=== PATIENT | female | born 1935 | race Caucasian/White ===

== ENCOUNTER 2016-09-25 10:30 | Outpatient (RCR) | payer MEDICARE ==
[~2016-09-25 10:30] MED LIST: ALPR0.5T7 PO; APIX2.5T PO; ASP81TEC PO; CFTR1PB IV; CHLO25TA2 PO; CLIN150C17 PO; CLIN300C11 PO; CLOP75TA PO; ENAL10TA PO; ENAL20TA PO; ENAL5TAB PO; FISH1CAP15 PO; HCT25T PO; HYDR-3812 PO; HYDR25TA4 PO; LACT1TAB9 PO; METO-274 PO; METO100T5 PO; MULT-35 PO; OMEG10005 PO; POVI3780 TOP; PRAV80TA2 PO; RISP0.253 PO; SENN-20 PO; TRAM50TA2 PO; TRIA1TAB3 PO; UBID10CA8 PO; VANC500V IV; [UNRECOGNIZED DRUG - CODE]
[2016-09-25] MEDS ORDERED: ACID1TAB5 PO (13:12)
[2016-09-25] MEDS ORDERED: RISP0.253 PO (13:12)
[2016-09-25] MEDS ORDERED: DOCU-143 PO (13:35)
[2016-10-01] MEDS ORDERED: AMOX500C2 PO (10:02)
[2016-10-01] MEDS ORDERED: ACID1TAB PO (10:02)
[2016-10-01] MEDS ORDERED: ZINC28PA TOP (10:02)
[2016-10-01] MEDS ORDERED: [UNRECOGNIZED DRUG - SUPPLY] TOP (10:02)
== END 2016-09-29 | disposition home or self-care (01) ==
LOC: WOUNDCARE 10:30
PROVIDERS: ATTEND Surgery
DX: L97.212 Non-pressure chronic ulcer of right calf with fat layer exposed (principal); L97.422 Non-pressure chronic ulcer of left heel and midfoot with fat layer exposed; L97.412 Non-pressure chronic ulcer of right heel and midfoot with fat layer exposed; I70.232 Atherosclerosis of native arteries of right leg with ulceration of calf; I70.244 Atherosclerosis of native arteries of left leg with ulceration of heel and midfoot; L89.150 Pressure ulcer of sacral region, unstageable; L03.115 Cellulitis of right lower limb; L97.312 Non-pressure chronic ulcer of right ankle with fat layer exposed; L97.322 Non-pressure chronic ulcer of left ankle with fat layer exposed; I70.233 Atherosclerosis of native arteries of right leg with ulceration of ankle; I70.243 Atherosclerosis of native arteries of left leg with ulceration of ankle; R54 Age-related physical debility
CPT/HCPCS: 11042; 11043; 11045; 11046; 87070; 87075; 87205; 97597; 99214

== ENCOUNTER 2016-09-25 11:29 | Inpatient (IN) | payer MEDICARE ==
[~2016-09-25] VITALS: Ht 162.6 cm; Wt 39.7 kg
[2016-09-25 12:00] VITALS: BP 121/72
[2016-09-25] MEDS ORDERED: VANCOMYCIN INJECTION 0.1 MG in NS (IVPB) 250 ML IV SCH (12:45)
[2016-09-25] MEDS ORDERED: CATHETER FLUSH 10 ML SYR IV PRN (13:00)
[2016-09-25] MEDS ORDERED: VANCOMYCIN 750 MG/NS 250 ML IVPB IV NR ×2 (13:00)
[2016-09-25] MEDS ORDERED: ACID1TAB5 PO (13:12)
[2016-09-25] MEDS ORDERED: RISP0.253 PO (13:12)
[2016-09-25] MEDS ORDERED: DOCU-143 PO (13:35)
[2016-09-25] MEDS ORDERED: fentaNYL INJECTION 100 MCG/2 ML AMP IVP NR (14:00)
[2016-09-25] MEDS ORDERED: PANTOPRAZOLE 40 MG (PROTONIX) TAB PO NR (14:00)
[2016-09-25] MEDS ORDERED: DOCUSATE SODIUM 100 MG (COLACE) CAP PO PRN (14:00)
[2016-09-25] MEDS ORDERED: fentaNYL INJECTION 100 MCG/2 ML AMP IVP PRN (14:00)
--- NOTE | 2016-09-25 14:03 | History & Physicial ---
History of Present Illness History of Present Illness Reason for visit/HPI PT IS A 80 Y/O FEMALE WHO IS KNOWN TO ME FROM CLINIC AND PREVIOUS HOSPITALIZATIONS. THE PATIENT WAS SEEN IN WOUND CARE TODAY - DR. CUNNINGHAM CALLED ME TO ASK FOR THE PATIENT TO BE ADMITTED TO THE HOSPITAL FOR WOUND CARE, IV ANTIBIOTICS, AND NUTRITION SUPPLEMENTATION. THE PATIENT REPORTS TO ME THAT SHE HAS QUITE A BIT OF PAIN ON HER LOWER LEG DUE TO THE WOUND ON HER ANKLES - BUT SPECIFICALLY THE RIGHT INNER ANKLE IS QUITE PAINFUL. SHE STATES THAT SHE DOES NOT EAT WELL AT HOME. WHEN I ASKED IF HER SON WAS CARING FOR HER - SHE STATED, "WELL....NOT WELL HE COULD I GUESS" AND WHEN I ASKED HER ABOUT IF SHE WAS EATING, AND WHO GOT THE FOOD AND IF HER MONEY WAS BEING SPENT ON FOOD FOR HER, SHE RESPONDED FOLLOWS: "MY SON GETS THE FOOD FOR US, THE MONEY IS SPENT A LITTLE ON FOOD, AND MORE ON CIGARETTES" Date of Admission Sep 25, 2016 at 11:37 I consulted on this patient on 09/25/16 13:55 Attending Physician Alysia Nathan MD Admitting Physician Alysia Nathan MD Consult MARY CUNNINGHAM MD Allergies and Home Medications Allergies Coded Allergies: NKANo Known Allergies (Verified Allergy, Unknown, 11/16/06) Home Medications Docusate Sodium 100 Mg Capsule 100 MG PO DAILY PRN PRN CONSTIPATION (Reported) Enalapril Maleate 20 Mg Tablet 20 MG PO DAILY (Reported) Hydrochlorothiazide 25 Mg Tablet 25 MG PO DAILY (Reported) L. Acidophilus/Bulgaricus 1 Each Tab.chew 1 TAB.CHEW PO TID (Reported) Metoprolol Succinate 100 Mg Tab.er.24h 100 MG PO DAILY (Reported) Risperidone 0.25 Mg Tablet 0.25 MG PO BID (Reported) Tramadol HCl 50 Mg Tablet 50 MG PO BID PRN PRN PAIN (Reported) Past Qdflvyg-Vmhjee-Cvrdcg Hx Patient Social History Marrital Status: Living Status: LIVES AT HOME WITH SON Employed/Student: retired Smoking Status: Current Everyday Smoker Type Used: Cigarettes 2nd Hand Smoke Exposure: Yes Physical Abuse Screen: No Sexual Abuse: No Recent Foreign Travel: No Contact w/other who traveled: No Recent Hopitalizations: Yes Recent Infectious Disease Expo: No Immunizations Up To Date Tetanus Booster (TDap): Unknown Date of Pneumonia Vaccine: May 18, 2014 Surgeries HX Surgeries: Yes (BILATERAL TOTAL HIP REPLACEMENTS) Surgeries: Breast, Joint Replacement, Orthopedic Respiratory Hx Respiratory Disorders: Yes Respiratory Disorders: COPD Cardiovascular Hx Cardiovascular Disorders: Yes Cardiac Disorders: Coronary Artery Disease, Heart Murmur, High Cholesterol, Hypertension, Peripheral Vascular, Valvular Heart Disease Neurological Hx Neurological Disorders: Yes Neurological Disorders: Dementia Reproductive System Hx Reproductive Disorders: No Sexually Transmitted Disease: No HIV/AIDS: No Female Reproductive Disorders: Denies [employer]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 Genitourinary Hx Genitourinary Disorders: No Gastrointestinal Hx Gastrointestinal Disorders: Yes Gastrointestinal Disorders: Chronic Constipation Musculoskeletal Hx Musculoskeletal Disorders: Yes ([place]--USES WALKER) Musculoskeletal Disorders: Arthritis, Fractures Endocrine Hx Endocrine Disorders: No HEENT HX ENT Disorders: No Loss of Vision: Denies Hearing Impairment: Hard of Hearing Cancer Hx Cancer: No Psychosocial Hx Psychiatric Problems: Yes Behavioral Health Disorders: Bipolar, Depression Integumentary HX Skin/Integumentary Disorder: No Blood Transfusions Hx Blood Disorders: Yes (ANEMIA) Adverse Reaction to a Blood Tr: No Reviewed Nursing Assessment Reviewed/Agree w Nursing PMH: Yes Family Medical History Significant Family History: Heart Disease, Cancer, Hypertension Family Hx: Cardiovascular disease 19 MOTHER (CVA) FH: mitral valve repair G8 SISTER FH: ovarian cancer KOFFI Myocardial infarction 19 FATHER Constitutional: No chills, No fever, malaise weakness EENTM: No hoarseness, No mouth pain, No throat pain Respiratory: No cough, No dyspnea on exertion Cardiovascular: no symptoms reportedNo chest pain, No palpitations Gastrointestinal: No abdominal pain, No constipation, No diarrhea Genitourinary: frequency Musculoskeletal: other (CONTRACTURES OF LOWER LEGS) Skin: other (OPEN WOUNDS ON LOWER LEGS/ANKLES, UPPER ARM) Psychiatric/Neurological: Denies Anxiety, Denies Depressed All Other Systems Reviewed Negative Unless Noted: Yes Physical Exam Vital Signs Vital Sign - Last 12Hours 09/25/16 12:00 Temp 95.6 Pulse 72 Resp 16 B/P 121/72 Pulse Ox 97 O2 Delivery Room Air Capillary Refill : General Appearance: No Apparent Distress Thin Eyes: Bilateral Eye EOMI, Bilateral Eye Normal Inspection, Bilateral Eye PERRL HEENT: PERRL/EOMI Pharynx Normal Neck: Full Range of Motion Supple Respiratory: Chest Non Tender Decreased Breath Sounds Cardiovascular: Regular Rate, Rhythm Systolic Murmur Gastrointestinal: Normal Bowel Sounds No Organomegaly No Pulsatile Mass Non Tender Soft Rectal: Deferred Back: Normal Inspection Extremity: Other (OPEN WOUNDS ON BILATERAL LOWER LEGS - WRAPPED, MEDIHONEY IN PLACE ON WOUNDS) Neurologic/Psychiatric: Alert Oriented x3 Normal Mood/Affect Lymphatic: No Adenopathy Assessment/Plan Assessment and Plan CELLULITIS OF WOUNDS ON LEGS 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 HYPERTENSION - RESTARTED METOPROLOL AND MONITOR BLOOD PRESSURE AND HEART RATE CLOSELY. COPD - CHRONIC - STABLE, MONITOR SYMPTOMS. BIPOLAR - RESTARTED RISPERDAL ANOREXIA - SUSPECT NEGLECT AT HOME, DISCUSSED WITH CHIEF MERCHANDISING OFFICER - THEY WILL PLACE HOT-LINE CALL FOR ADULT PROTECTIVE SERVICES. CONTINUE WITH SUPPORTIVE CARE AND START IN HIGH CALORIE, HIGH PROTEIN DIET LOW AIR LOSS BED TO BE ORDERED DUE TO PT'S DECREASED ABILITY TO MOVE, WILL ORDER PHYSICAL THERAPY TO START ON WEDNESDAY Admission Diagnosis CELLULITIS OF WOUNDS ON LEGS HX OF MRSA IN WOUNDS ON LOWER LEGS - COPD BIPOLAR MOOD DISORDER ANOREXIA HYPERTENSION Clinical Quality Measures DVT/VTE Risk/Contraindication: Contraindications-Mechi: Other *list below* Other: WOUNDS ON LOWER LEGS ALYSIA NATHAN MD Sep 25, 2016 14:03
[2016-09-25 14:17] LABS: BASOPHILS # (AUTO) 0.1 10^3/uL (0.0-0.1); BASOPHILS % (AUTO) 1 % (0-10); EOSINOPHILS # (AUTO) 0.3 10^3/uL (0.0-0.3); EOSINOPHILS % (AUTO) 3 % (0-10); LYMPHOCYTES # (AUTO) 1.6 X 10^3 (1.0-4.0); LYMPHOCYTES % (AUTO) 19 % (12-44); MEAN CORPUSCULAR HEMOGLOBIN 28 PG (25-34); MEAN CORPUSCULAR HGB CONC 33 G/DL (32-36); MEAN CORPUSCULAR VOLUME 83 FL (80-99); MEAN PLATELET VOLUME 7.9 FL (7.4-10.4); MONOCYTES # (AUTO) 0.4 X 10^3 (0.0-1.0); MONOCYTES % (AUTO) 5 % (0-12); NEUTROPHILS % (AUTO) 72 % (42-75); PLATELET COUNT 509 10^3/uL (130-400); RED BLOOD COUNT 4.67 10^6/uL (4.35-5.85); RED CELL DISTRIBUTION WIDTH 14.5 % (10.0-14.5); WHITE BLOOD COUNT 8.3 10^3/uL (4.3-11.0)
[2016-09-25 14:39] LABS: CARBON DIOXIDE 26 MMOL/L (21-32); CHLORIDE 95 MMOL/L (98-107); POTASSIUM 3.3 MMOL/L (3.6-5.0); SODIUM 134 MMOL/L (135-145)
[2016-09-25 14:40] LABS: ALANINE AMINOTRANSFERASE 22 U/L (0-55); ALBUMIN 3.5 G/DL (3.2-4.5); ANION GAP 13 MMOL/L (5-14); ASPARTATE AMINO TRANSFERASE 26 U/L (5-34); BILIRUBIN,TOTAL 0.4 MG/DL (0.1-1.0); BLOOD UREA NITROGEN 25 MG/DL (7-18); BUN/CREATININE RATIO 40; CALCIUM 8.8 MG/DL (8.5-10.1); CREATININE SERUM 0.63 MG/DL (0.60-1.30); GFR ESTIMATED > 60; GLUCOSE 87 MG/DL (70-105); TOTAL PROTEIN 7.1 G/DL (6.4-8.2)
[2016-09-25] MEDS ORDERED: PIPERACILLIN SODIUM/TAZOBACTAM 4.5 GM in NS (IVPB) 100 ML IV NR (15:00)
[2016-09-25] MEDS: ENOXAPARIN 40 MG/0.4 ML (LOVENOX) SYR SC SCH (15:26)
[2016-09-25] MEDS: CATHETER FLUSH 10 ML SYR IV SCH ×2 (15:27→21:24)
[2016-09-25 16:00] VITALS: BP 134/82
[2016-09-25] MEDS: D5 1/2 NS 1000 ML IV SOLUTION 1,000 ML IV SCH (16:47)
[2016-09-25] MEDS: LACTOBACILLUS Acidoph/Bulgar (LACTINEX/FLORANEX) TAB PO SCH (16:47)
--- NOTE | 2016-09-25 19:11 | Wound Care Progress Note ---
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 It was my opinion that the patient was not stable to be returned to the home environment. The accounts given of the cause of the traumatic injury to R calf have been inconsistent. Review of Systems General: No Chills Pulmonary: No Dyspnea Cardiovascular: No: Chest Pain Gastrointestinal: : Nausea Neurological: : Weakness Objective Exam Last Set of Vital Signs Vital Signs Date Time Temp Pulse Resp B/P Pulse Ox O2 Delivery O2 Flow Rate FiO2 09/25/16 16:00 96.9 69 20 134/82 97 Room Air Capillary Refill : General: Alert, No Acute Distress Lungs: Normal Air Movement Skin: Other (wounds of R calf, R medial ankle, L medial ankle, and sacrum which were documented and dressed earlier today in [facility].) Results Lab Laboratory Tests 09/25/16 14:10: Alanine Aminotransferase (ALT/SGPT) 22, Albumin 3.5, Alkaline Phosphatase 88, Anion Gap 13, Aspartate Amino Transf (AST/SGOT) 26, BUN/Creatinine Ratio 40, Basophils # (Auto) 0.1, Basophils (%) (Auto) 1, Blood Urea Nitrogen 25H, Calcium Level 8.8, Carbon Dioxide Level 26, Chloride Level 95L, Creatinine 0.63 , Eosinophils # (Auto) 0.3, Eosinophils (%) (Auto) 3, Estimat Glomerular Filtration Rate > 60, Glucose Level 87, Hematocrit 39, Hemoglobin 13.0, Lymphocytes # (Auto) 1.6, Lymphocytes (%) (Auto) 19, Mean Corpuscular Hemoglobin 28, Mean Corpuscular Hemoglobin Concent 33, Mean Corpuscular Volume 83, Mean Platelet Volume 7.9, Monocytes # (Auto) 0.4, Monocytes (%) (Auto) 5, Neutrophils # (Auto) 6.0, Neutrophils (%) (Auto) 72, Platelet Count 509H, Potassium Level 3.3L, Red Blood Count 4.67, Red Cell Distribution Width 14.5, Sodium Level 134L, Total Bilirubin 0.4, Total Protein 7.1, White Blood Count 8.3 Assessment/Plan Assessment/Plan Assessment/Plan 1. Cellulitis of R calf. 2. Infected, necrotic laceration of R calf. 3. Arterial insufficiency R leg, non-reconstructible. 4. Dementia. Plan: Manuka honey alginate dressings. IV Vancomycin, Zosyn per Pharm MARY TERRELL MD Sep 25, 2016 7:11 pm
[2016-09-25] MEDS ORDERED: FLU TRIvalent (5 YOA+) 2016-17 (AFLURIA) 0.5 ML IM ONE (19:45)
[2016-09-25 20:45] VITALS: BP 120/57
[2016-09-25] MEDS: NICOTINE 14 MG (NICODERM) PATCH TD SCH (21:24)
[2016-09-25] MEDS: risperiDONE 0.25 MG (RisperDAL) TAB PO SCH (21:24)
[2016-09-25] MEDS: ZINC OXIDE 16% OINT (BUTT PASTE) 113 GM TUBE TOP SCH (21:24)
[2016-09-25] MEDS: PIPERACILLIN SODIUM/TAZOBACTAM 4.5 GM in NS (IVPB) 100 ML IV SCH (22:10)
[2016-09-26] VITALS (7 sets, daily range): BP systolic 93–114; BP diastolic 54–78
[2016-09-26] MEDS: VANCOMYCIN 500 MG/NS 100 ML IVPB IV SCH ×4 (00:54→15:06)
[2016-09-26] MEDS: CATHETER FLUSH 10 ML SYR IV SCH ×3 (06:00→20:54)
[2016-09-26] MEDS: D5 1/2 NS 1000 ML IV SOLUTION 1,000 ML IV SCH ×2 (06:24→10:31)
[2016-09-26 06:33] LABS: BASOPHILS # (AUTO) 0.1 10^3/uL (0.0-0.1); BASOPHILS % (AUTO) 1 % (0-10); EOSINOPHILS # (AUTO) 0.5 10^3/uL (0.0-0.3); EOSINOPHILS % (AUTO) 7 % (0-10); LYMPHOCYTES # (AUTO) 0.8 X 10^3 (1.0-4.0); LYMPHOCYTES % (AUTO) 11 % (12-44); MEAN CORPUSCULAR HEMOGLOBIN 27 PG (25-34); MEAN CORPUSCULAR HGB CONC 33 G/DL (32-36); MEAN CORPUSCULAR VOLUME 83 FL (80-99); MEAN PLATELET VOLUME 7.9 FL (7.4-10.4); MONOCYTES # (AUTO) 0.5 X 10^3 (0.0-1.0); MONOCYTES % (AUTO) 6 % (0-12); NEUTROPHILS # (AUTO) 6.1 X 10^3 (1.8-7.8); NEUTROPHILS % (AUTO) 77 % (42-75); PLATELET COUNT 461 10^3/uL (130-400); RED BLOOD COUNT 4.01 10^6/uL (4.35-5.85); RED CELL DISTRIBUTION WIDTH 14.5 % (10.0-14.5); WHITE BLOOD COUNT 7.9 10^3/uL (4.3-11.0)
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
[2016-09-26 06:45] LABS: ALANINE AMINOTRANSFERASE 18 U/L (0-55); ALBUMIN 2.7 G/DL (3.2-4.5); ANION GAP 9 MMOL/L (5-14); ASPARTATE AMINO TRANSFERASE 20 U/L (5-34); BILIRUBIN,TOTAL 0.4 MG/DL (0.1-1.0); BLOOD UREA NITROGEN 19 MG/DL (7-18); BUN/CREATININE RATIO 29; CALCIUM 8.2 MG/DL (8.5-10.1); CARBON DIOXIDE 25 MMOL/L (21-32); CHLORIDE 100 MMOL/L (98-107); CREATININE SERUM 0.66 MG/DL (0.60-1.30); GFR ESTIMATED > 60; GLUCOSE 120 MG/DL (70-105); POTASSIUM 2.8 MMOL/L (3.6-5.0); SODIUM 134 MMOL/L (135-145); TOTAL PROTEIN 5.4 G/DL (6.4-8.2)
[2016-09-26] MEDS: PIPERACILLIN SODIUM/TAZOBACTAM 4.5 GM in NS (IVPB) 100 ML IV SCH ×3 (06:50→22:03)
[2016-09-26] MEDS: LACTOBACILLUS Acidoph/Bulgar (LACTINEX/FLORANEX) TAB PO SCH ×3 (06:50→15:11)
[2016-09-26] MEDS: PANTOPRAZOLE 40 MG (PROTONIX) TAB PO SCH (06:50)
[2016-09-26] MEDS: KCL 20 MEQ TAB (K-DUR) PO SCH (06:54)
[2016-09-26] MEDS ORDERED: NICOTINE 14 MG (NICODERM) PATCH TD SCH (09:00)
[2016-09-26] MEDS: risperiDONE 0.25 MG (RisperDAL) TAB PO SCH ×2 (10:31→20:53)
[2016-09-26] MEDS: meTOprolol SUCCINATE 100 MG (TOPROL XL) TAB PO SCH ×2 (10:31→10:45)
[2016-09-26] MEDS: NICOTINE PATCH REMOVAL TP SCH (10:31)
[2016-09-26] MEDS: NICOTINE 14 MG (NICODERM) PATCH TD SCH (10:31)
[2016-09-26] MEDS: ZINC OXIDE 16% OINT (BUTT PASTE) 113 GM TUBE TOP SCH ×3 (10:32→20:54)
[2016-09-26] MEDS: ENALAPRIL 10 MG (VASOTEC) TAB PO SCH ×2 (10:35→10:45)
[2016-09-26] MEDS ORDERED: FLU TRIvalent (5 YOA+) 2016-17 (AFLURIA) 0.5 ML IM ONE (10:37)
[2016-09-26] MEDS ORDERED: TROUGH ORDER-PHARMACY XX NR (12:00)
[2016-09-26] MEDS: ENOXAPARIN 40 MG/0.4 ML (LOVENOX) SYR SC SCH (15:06)
[2016-09-27] VITALS: BP 101/66
[2016-09-27] MEDS: VANCOMYCIN 500 MG/NS 100 ML IVPB IV SCH ×4 (02:20→12:10)
[2016-09-27] MEDS: D5 1/2 NS 1000 ML IV SOLUTION 1,000 ML IV SCH (03:00)
[2016-09-27 06:00] VITALS: BP 111/70
[2016-09-27] MEDS: LACTOBACILLUS Acidoph/Bulgar (LACTINEX/FLORANEX) TAB PO SCH ×3 (06:05→18:37)
[2016-09-27] MEDS: KCL 20 MEQ TAB (K-DUR) PO SCH (06:05)
[2016-09-27] MEDS: PANTOPRAZOLE 40 MG (PROTONIX) TAB PO SCH (06:05)
[2016-09-27] MEDS: CATHETER FLUSH 10 ML SYR IV SCH ×3 (06:06→21:59)
[2016-09-27] MEDS: PIPERACILLIN SODIUM/TAZOBACTAM 4.5 GM in NS (IVPB) 100 ML IV SCH ×3 (06:06→21:59)
[2016-09-27 08:00] VITALS: BP 138/78
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
[2016-09-27] MEDS: POTASSIUM CL 10MEQ/50ML IVPB 50 ML IV SCH ×4 (09:24→14:07)
[2016-09-27] MEDS: NICOTINE 14 MG (NICODERM) PATCH TD SCH (09:25)
[2016-09-27] MEDS: NS W/KCL 40 MEQ/L 1,000 ML IV SCH (09:25)
[2016-09-27] MEDS: NICOTINE PATCH REMOVAL TP SCH (09:25)
[2016-09-27] MEDS: risperiDONE 0.25 MG (RisperDAL) TAB PO SCH ×2 (09:25→21:59)
[2016-09-27] MEDS: ZINC OXIDE 16% OINT (BUTT PASTE) 113 GM TUBE TOP SCH ×3 (09:25→21:59)
[2016-09-27] MEDS: meTOprolol SUCCINATE 100 MG (TOPROL XL) TAB PO SCH (09:26)
[2016-09-27] MEDS: ENALAPRIL 10 MG (VASOTEC) TAB PO SCH (09:26)
[2016-09-27 12:00] VITALS: BP 126/75
[2016-09-27] MEDS: ENOXAPARIN 40 MG/0.4 ML (LOVENOX) SYR SC SCH (14:23)
[2016-09-27 14:45] LABS: BASOPHILS % (AUTO) 1 % (0-10); EOSINOPHILS # (AUTO) 0.4 10^3/uL (0.0-0.3); EOSINOPHILS % (AUTO) 6 % (0-10); LYMPHOCYTES % (AUTO) 16 % (12-44); MEAN CORPUSCULAR HEMOGLOBIN 28 PG (25-34); MEAN CORPUSCULAR HGB CONC 33 G/DL (32-36); MEAN CORPUSCULAR VOLUME 84 FL (80-99); MEAN PLATELET VOLUME 7.7 FL (7.4-10.4); MONOCYTES # (AUTO) 0.4 X 10^3 (0.0-1.0); MONOCYTES % (AUTO) 5 % (0-12); NEUTROPHILS # (AUTO) 4.7 X 10^3 (1.8-7.8); NEUTROPHILS % (AUTO) 72 % (42-75); PLATELET COUNT 486 10^3/uL (130-400); RED BLOOD COUNT 3.89 10^6/uL (4.35-5.85); RED CELL DISTRIBUTION WIDTH 14.5 % (10.0-14.5); WHITE BLOOD COUNT 6.5 10^3/uL (4.3-11.0)
[2016-09-27 15:07] LABS: ALANINE AMINOTRANSFERASE 17 U/L (0-55); ALBUMIN 2.7 G/DL (3.2-4.5); ANION GAP 9 MMOL/L (5-14); ASPARTATE AMINO TRANSFERASE 19 U/L (5-34); BILIRUBIN,TOTAL 0.3 MG/DL (0.1-1.0); BLOOD UREA NITROGEN 12 MG/DL (7-18); BUN/CREATININE RATIO 20; CALCIUM 7.9 MG/DL (8.5-10.1); CARBON DIOXIDE 22 MMOL/L (21-32); CHLORIDE 104 MMOL/L (98-107); GFR ESTIMATED > 60; GLUCOSE 98 MG/DL (70-105); POTASSIUM 4.6 MMOL/L (3.6-5.0); SODIUM 135 MMOL/L (135-145); TOTAL PROTEIN 5.5 G/DL (6.4-8.2)
[2016-09-27 16:50] VITALS: BP 114/58
[2016-09-27 20:00] VITALS: BP 124/63
[2016-09-28] VITALS (7 sets, daily range): BP systolic 115–133; BP diastolic 62–79
[2016-09-28] MEDS: NS W/KCL 40 MEQ/L 1,000 ML IV SCH ×2 (00:48→14:42)
[2016-09-28] MEDS: VANCOMYCIN 500 MG/NS 100 ML IVPB IV SCH ×4 (01:20→13:55)
[2016-09-28] MEDS: KCL 20 MEQ TAB (K-DUR) PO SCH (06:14)
[2016-09-28] MEDS: PIPERACILLIN SODIUM/TAZOBACTAM 4.5 GM in NS (IVPB) 100 ML IV SCH ×3 (06:14→21:26)
[2016-09-28] MEDS: LACTOBACILLUS Acidoph/Bulgar (LACTINEX/FLORANEX) TAB PO SCH ×3 (06:14→17:20)
[2016-09-28] MEDS: PANTOPRAZOLE 40 MG (PROTONIX) TAB PO SCH (06:14)
[2016-09-28] MEDS: CATHETER FLUSH 10 ML SYR IV SCH ×3 (06:14→21:26)
--- NOTE | 2016-09-28 09:17 | Progress Note (SOAP) ---
Subjective Subjective/Events-last exam PT REPORTS THAT SHE IS HAVING A GOOD APPETITE, SHE IS NOT NAUSEATED, SHE IS STILL HAVING PAIN IN HER LEGS AT THE WOUND SITES. Review of Systems General: Fatigue Pulmonary: No Dyspnea, No Cough Cardiovascular: : EdemaNo: Chest Pain Gastrointestinal: No: Abdominal Pain, Nausea Genitourinary: Frequency Neurological: : Weakness Objective Exam Vital Signs Date Time Temp Pulse Resp B/P Pulse Ox O2 Delivery O2 Flow Rate FiO2 09/28/16 08:00 97.2 99 18 128/79 95 Room Air 09/28/16 04:00 98.4 82 21 121/64 96 Room Air 09/28/16 00:00 98.9 78 17 115/62 95 Room Air 09/27/16 20:30 Room Air 09/27/16 20:00 98.3 80 22 124/63 94 Room Air 09/27/16 16:50 98.7 72 21 114/58 95 Room Air 09/27/16 12:00 97.3 71 21 126/75 97 Room Air I & O 09/28/16 07:00 Intake Total 1480 ml Output Total 600 ml Balance 880 ml Capillary Refill : General Appearance: No Apparent Distress Thin HEENT: PERRL/EOMI Pharynx Normal Neck: Full Range of Motion Supple Respiratory: Chest Non Tender Lungs Clear Normal Breath Sounds Cardiovascular: Regular Rate, Rhythm Gastrointestinal: normal bowel sounds non tender soft Extremity: No Pedal Edema Neurologic/Psychiatric: Alert Oriented x3 Normal Mood/Affect Skin: Other (SEE WOUND CARE NOTES FOR DETAILS) Lymphatic: No Adenopathy Results Lab Laboratory Tests 09/27/16 14:40: Alanine Aminotransferase (ALT/SGPT) 17, Albumin 2.7L, Alkaline Phosphatase 68, Anion Gap 9, Aspartate Amino Transf (AST/SGOT) 19, BUN/Creatinine Ratio 20, Basophils # (Auto) 0.0, Basophils (%) (Auto) 1, Blood Urea Nitrogen 12, Calcium Level 7.9L, Carbon Dioxide Level 22, Chloride Level 104, Creatinine 0.60, Eosinophils # (Auto) 0.4H, Eosinophils (%) (Auto) 6, Estimat Glomerular Filtration Rate > 60, Glucose Level 98, Hematocrit 33L, Hemoglobin 10.7L, Lymphocytes # (Auto) 1.0, Lymphocytes (%) (Auto) 16, Mean Corpuscular Hemoglobin 28, Mean Corpuscular Hemoglobin Concent 33, Mean Corpuscular Volume 84, Mean Platelet Volume 7.7, Monocytes # (Auto) 0.4, Monocytes (%) (Auto) 5, Neutrophils # (Auto) 4.7, Neutrophils (%) (Auto) 72, Platelet Count 486H, Potassium Level 4.6, Red Blood Count 3.89L, Red Cell Distribution Width 14.5, Sodium Level 135, Total Bilirubin 0.3, Total Protein 5.5L, White Blood Count 6.5 Assessment/Plan Assessment/Plan Assess & Plan/Chief Complaint CELLULITIS OF WOUNDS ON LEGS 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 HYPERTENSION - RESTARTED METOPROLOL AND MONITOR BLOOD PRESSURE AND HEART RATE CLOSELY. COPD - CHRONIC - STABLE, MONITOR SYMPTOMS. BIPOLAR - RESTARTED RISPERDAL ANOREXIA - SUSPECT NEGLECT AT HOME, DISCUSSED WITH COMMUNICATIONS ENGINEER - THEY WILL PLACED A HOT-LINE CALL FOR ADULT PROTECTIVE SERVICES. CONTINUE WITH SUPPORTIVE CARE AND STARTED ON A HIGH CALORIE, HIGH PROTEIN DIET DISCUSSED WITH COMMUNICATIONS ENGINEER, THEY ARE TALKING TO THE FAMILY ABOUT PLACEMENT OPTIONS - I HAVE RECOMMENDED [facility] IF THEY WILL ACCEPT HER FOR WOUND CARE AND IV ANTIBIOTICS VERSUS [facility] PLACEMENT Diagnosis/Problems: Clinical Quality Measures DVT/VTE Risk/Contraindication: Risk Factor Score Per Nursin RFS Level Per Nursing on Admit: 4+=Very High Contraindications-Mechi: Other *list below* Other: WOUNDS ON LOWER LEGS ALYSIA NORRIS MD Sep 28, 2016 09:17
[2016-09-28] MEDS: ENALAPRIL 10 MG (VASOTEC) TAB PO SCH (10:20)
[2016-09-28] MEDS: meTOprolol SUCCINATE 100 MG (TOPROL XL) TAB PO SCH (10:20)
[2016-09-28] MEDS: risperiDONE 0.25 MG (RisperDAL) TAB PO SCH ×2 (10:20→21:26)
[2016-09-28] MEDS: NICOTINE 14 MG (NICODERM) PATCH TD SCH (10:20)
[2016-09-28] MEDS: ZINC OXIDE 16% OINT (BUTT PASTE) 113 GM TUBE TOP SCH ×3 (10:21→21:26)
[2016-09-28] MEDS: NICOTINE PATCH REMOVAL TP SCH (10:21)
--- NOTE | 2016-09-28 12:03 | Physical Therapy Evaluation ---
PT Evaluation-General Medical Diagnosis Admission Date Sep 25, 2016 at 11:37 Medical Diagnosis: right LE cellulitis Onset Date: Sep 25, 2016 Therapy Diagnosis Therapy Diagnosis: generalized weakness and debility Height/Weight Height (Feet): 5 Height (Inches): 4.00 Weight (Pounds): 87 Weight (Ounces): 8.0 Precautions Precautions/Isolations: Contact Isolation Weight Bear Status Location Restriction: LE Bilateral Referral Physician: Venita Reason for Referral: Evaluation/Treatment Medical History Pertinent Medical History: Arthritis, CAD, COPD, Dementia, HTN, PVD, Smoking Additional Medical History bilateral THR; bipolar Current History admitted from wound care Reviewed History: Yes Social History Home: Single Level Current Living Status: Other Family Entry Into Home: Ramp Prior/Core FIM Prior Level of Function Functional [place] Measure 0=Not Assessed/NA 4=Minimal Assistance 1=Total Assistance 5=Supervision or Setup 2=Maximal Assistance 6=Modified [place] 3=Moderate Assistance 7=Complete [place] Bed Mobility: 5 Transfers (B,C,W/C) (FIM): 5 Gait: 0 Wheelchair Mobility: 5 patient does not ambulate, uses her w/c for mobility PT Evaluation-Current Subjective Patient is in bed and unaware of incontinent BM with patient has her hands in it. Pain Numeric Pain Scale: 5-Moderate Pain Location: Right, Left Location Body Site: Calf Comment: FLACC Objective Patient Orientation: Confused Problem Solving: Poor Attachments: Mora Catheter, IV ROM/Strength ROM Lower Extremities diminished bilateral ankle dorsiflexion with mild plantarflexion contracture; bilateral knee flexion/extension WFL Strenght Lower Extremities right knee flexion/extension 2-/5; hip flexion 2/5 left knee flexion/extension 2-/5; hip flexion 2/5 Integumentary/Posture Integumentary refer to nursing notes Bowel Incontinence: Yes Bladder Incontinence: Mora Cath Posture severely kyphotic Neuromuscular (Tone, Coordination, Reflexes) severely diminished coordination and tone from disuse and inability to care for self Sensory Vision: Functional Hearing: Impaired Sensation Right Lower Extremit: Intact Sensation Left Lower Extremity: Intact Transfers Functional [place] Measure 0=Not Assessed/NA 4=Minimal Assistance 1=Total Assistance 5=Supervision or Setup 2=Maximal Assistance 6=Modified [place] 3=Moderate Assistance 7=Complete [place] Transfers (B, C, W/C) (FIM): 1 Scootin Rollin Supine to/from Sit: 1 Sit to/from Stand: 1 bed t/f WC(FIM only if WC use): 1 dependent assist with all mobility and to cleanse BM and change clothing; patient is retropulsive in sit and stand with inability to self correct. Gait Mode of Locomotion: Wheelchair Anticipated Mode of Locomotion: Wheelchair Balance Sitting Static: Poor Sitting Dynamic: Poor Standing Static: Poor Standing Dynamic: Poor Assessment/Needs 80 y.o. extremely debilitated female, will benefit from skilled PT to address functional strength and mobility to improve current LOF. From a PT standpoint, patient will require LTCF to ensure prolonged improvement in mobility and strength. Rehab Potential: Guarded Post Rehab Potential-Barriers: inability to care for self PT System Validation Engineer Goals Half-Way Goals PT System Validation Engineer Goals Time Frame: Oct 09, 2016 Transfers (B,C,W/C) (FIM): 4 Gait (FIM): 1 Gait distance (FIM): 1=up to 49 ft Distance: 5' Gait Level of Assist: 2 Gait Assistive Device: FWW Wheelchair (FIM): 1 Wheelchair distance (FIM): 1=up to 49 ft Distance: 10' Wheelchair Level of Assist: 3 PT Plan Problem List Problem List: Activity Tolerance, Functional Strength, Safety, Balance, Gait, Transfer, Bed Mobility, ROM Treatment/Plan Treatment Plan: Continue Plan of Care Treatment Plan: Bed Mobility, Education, Functional Activity Lianna, Functional Strength, Gait, Safety, Therapeutic Exercise, Transfers Treatment Duration: Oct 09, 2016 # of days/week 5 Visits Per Week: 5 Safety Risks/Education Patient Education: Safety Issues Teaching Recipient: Patient Teaching Methods: Discussion Response to Teaching: Reinforcement Needed Discharge Recommendations Therapy D/C Recommendations: Half-Way Placement Time/GCodes Time In: 1055 Time Out: 1115 Total Billed Treatment Time: 20 Total [facility] CAM CORONADO PT Sep 28, 2016 12:03
[2016-09-28 14:14] LABS: BASOPHILS # (AUTO) 0.1 10^3/uL (0.0-0.1); BASOPHILS % (AUTO) 1 % (0-10); EOSINOPHILS # (AUTO) 0.3 10^3/uL (0.0-0.3); EOSINOPHILS % (AUTO) 4 % (0-10); LYMPHOCYTES # (AUTO) 1.6 X 10^3 (1.0-4.0); LYMPHOCYTES % (AUTO) 22 % (12-44); MEAN CORPUSCULAR HEMOGLOBIN 27 PG (25-34); MEAN CORPUSCULAR HGB CONC 32 G/DL (32-36); MEAN CORPUSCULAR VOLUME 86 FL (80-99); MEAN PLATELET VOLUME 7.8 FL (7.4-10.4); MONOCYTES # (AUTO) 0.5 X 10^3 (0.0-1.0); MONOCYTES % (AUTO) 7 % (0-12); NEUTROPHILS % (AUTO) 67 % (42-75); PLATELET COUNT 472 10^3/uL (130-400); RED CELL DISTRIBUTION WIDTH 14.5 % (10.0-14.5); WHITE BLOOD COUNT 7.5 10^3/uL (4.3-11.0)
[2016-09-28 14:32] LABS: ALANINE AMINOTRANSFERASE 17 U/L (0-55); ALBUMIN 2.5 G/DL (3.2-4.5); ANION GAP 5 MMOL/L (5-14); ASPARTATE AMINO TRANSFERASE 19 U/L (5-34); BILIRUBIN,TOTAL 0.2 MG/DL (0.1-1.0); BLOOD UREA NITROGEN 16 MG/DL (7-18); BUN/CREATININE RATIO 27; CALCIUM 7.8 MG/DL (8.5-10.1); CARBON DIOXIDE 23 MMOL/L (21-32); CHLORIDE 106 MMOL/L (98-107); GFR ESTIMATED > 60; GLUCOSE 88 MG/DL (70-105); POTASSIUM 4.3 MMOL/L (3.6-5.0); SODIUM 134 MMOL/L (135-145); TOTAL PROTEIN 5.2 G/DL (6.4-8.2)
--- NOTE | 2016-09-28 14:36 | Occupational Therapy Eval ---
OT Evaluation-General/PLF Medical Diagnosis Admission Date Sep 25, 2016 at 11:37 Medical Diagnosis: right LE cellulitis Onset Date: Sep 25, 2016 Therapy Diagnosis Therapy Diagnosis: Weakness, Decreased ADL skills Height/Weight Height (Feet): 5 Height (Inches): 4.00 Weight (Pounds): 87 Weight (Ounces): 8.0 Precautions Precautions/Isolations: Contact Isolation Safety Interventions: None Weight Bear Status Weight Bearing Restriction: Weight Bearing/Tolerated Location Restriction: LE Bilateral Referral Physician: Venita Referral Reason: Activity Tolerance, Self Care, Evaluation/Treatment, Strengthening/ROM Medical History Pertinent Medical History: Arthritis, CAD, COPD, Dementia, HTN, PVD, Smoking Additional Medical History smokes currently, bipolar disorder, bilateral THR Current History Pt. lives at home with son. It is unclear at this time what she was able to do for herself. Pt. is not fully able to verbalize what her history is, but states , "I was as healthy as a horse." Reviewed History: Yes Social History Home: Single Level Current Living Status: Children Entry Into Home: Stairs With Railing Steps Into Home: 1-2 per pt. ADL-Prior Level of Function ADL PLOF Comments It is unclear what pt. was able to do. Note that she has significant black material under her fingernails. When pt. is asked about this, she states, "Its everything, blood, I don't know." Assess that it may possibly be fecal matter. Pt. is mal nourished. Has wounds on bilateral LE. Is poor historian. DME/Equipment: Bath Chair, Tub/Shower DME/Equipment Comments Pt. states that she uses a walker. States that she has a tub/shower with a seat. Drive Self: No OT Current Status Subjective Pt. does not report a pain level. Appearance Pt up in her chair. Smiling but is unable to fully state her history. Mental Status/Objective Patient Orientation: Unable to Assess Current Hand Dominance: Right Upper Extremity ROM Pt. is only able to flex right shoulder to approximately 45 degrees. Is able to flex left shoulder functionally within limits. Pt. states that she does not know why she is unable to raise her right arm very high. Upper Extremity Strength Unable to participate in strength testing. ADL-Treatment Functional [place] Measure 0=Not Assessed/NA 4=Minimal Assistance 1=Total Assistance 5=Supervision or Setup 2=Maximal Assistance 6=Modified [place] 3=Moderate Assistance 7=Complete IndependenceIRFPAI Quality Coding Scale 6 Independent with activity with or without an assistive device 5 Patient requires set up or clean up by helper. Patient completes activity by themselves 4 Supervision or touching assist (CGA). [place] provide cues , steadying assist 3 The helper provides less than half the effort to complete the activity 2 The helper provides more than half the effort to complete the activity 1 Dependent. The helper does all the effort to complete an activity 7 Patient refused to complete or attempt activity 9 The patient did not perform the activity before the current illness or injury 88 Not attempted due to Medical conditions or safety concerns Bathing (FIM): 2 (Pt. is able to dab at her arms and torso. OT cleanses bilateral LE and front/rear kishor areas for her.) Lower Body Dressing (FIM): 1 (Pt. is unable to reach her feet up in chair.) Toileting (FIM): 1 (Pt. is fully incontinent of bowel during assessment. Has catheter for urine.) Transfers (B, C, W/C) (FIM): 2 (Max assist for sit-stand and to transfer to bed. Dependent assist for sit-supine, and dependent x 2 for bed mobility.) Other Treatments OT attempts to cleanse under fingernails. Able to remove some debris, but nails need cut and are black under. Will attempt to find orange stick to cleanse nails better. Pt. also has feces in vaginal area from suspected constant incontinence. OT cleansed this well and applied cream per nursing request. Pt. very frail. Apparent that she has not been well cared for. Education OT Patient Education: Correct positioning, Modified ADL techniques, Progress toward Goal/Update tx plan, Purpose of tx/functional activities, Reviewed precautions, Rehab process, Transfer techniques Teaching Recipient: Patient Teaching Methods: Demonstration, Discussion Response to Teaching: Verbalize Understanding, Return Demonstration OT Short Term Goals Short Term Goals Time Frame: Oct 12, 2016 Eating(FIM): 4 Grooming(FIM): 4 Bathing(FIM): 3 Upper Body Dressing(FIM): 4 Lower Body Dressing(FIM): 3 Toileting(FIM): 3 Transfers (B,C,W/C) (FIM): 3 Toilet/Commode Transfer(FIM): 3 Additional Short Term Goals: 1-Demonstrate ADL Tasks, 2-Verbalize Understanding , 3-ImproveStrength/Lianna 1=Demonstrate adherence to instructed precautions during ADL tasks. 2=Patient will verbalize/demonstrate understanding of assistive devices/ modifications for ADL. 3=Patient will improve strength/tolerance for activity to enable patient to perform ADL's. OT Custodial Goals Clinic Mgr Goals Time Frame: Oct 26, 2016 Eating (FIM): 6 Grooming(FIM): 6 Bathing(FIM): 5 Upper Body Dressing(FIM): 5 Lower Body Dressing(FIM): 5 Toileting(FIM): 6 Transfers (B,C,W/C) (FIM): 6 Toilet/Commode Transfer(FIM): 6 Additional Goals: 1-Demonstrate ADL Tasks, 2-Verbalize Understanding, 3- ImproveStrength/Lianna 1=Demonstrate adherence to instructed precautions during ADL tasks. 2=Patient will verbalize/demonstrate understanding of assistive devices/ modifications for ADL. 3=Patient will improve strength/tolerance for activity to enable patient to perform ADL's. OT Education/Plan Problem List/Assessment Assessment: Decreased Activ Tolerance, Decreased Safety Aware, Decreased UE Strength, Dependent Transfers, Impaired Bed Mobility, Impaired Cognition, Impaired Coordination, Impaired Funct Balance, Impaired I ADL's, Impaired Self- Care Skills Discharge Recommendations Plan/Recommendations: Continue POC Therapy D/C Recommendations: 24 hr Supervision, Jail Placement Barriers to Progress cognition Target Placement Pt. requires 24 hour assistance at this time. Treatment Plan/Plan of Care Treatment,Training & Education: Yes Patient would benefit from OT for education, treatment and training to promote independence in ADL's, mobility, safety and/or upper extremity function for ADL' s. Plan of Care: ADL Retraining, Caregiver Training, Cognitive Retraining, Functional Mobility, UE Funct Exercise/Act Treatment Duration: Oct 26, 2016 # of days/week 5-6 Visits Per Week: 5-6 Agreement: Yes Rehab Potential: Guarded Time/GCodes Start Time: 13:25 Stop Time: 13:52 Total Time Billed (hr/min): 27 Billed Treatment Time 1, EVhigh complexity x 10minutes, ADL x 17minutes JULIA IVERSON OT Sep 28, 2016 14:36
[2016-09-28] MEDS: ENOXAPARIN 40 MG/0.4 ML (LOVENOX) SYR SC SCH (14:42)
[2016-09-29] MEDS: VANCOMYCIN 500 MG/NS 100 ML IVPB IV SCH ×4 (00:19→12:09)
[2016-09-29] MEDS: CATHETER FLUSH 10 ML SYR IV SCH ×3 (05:56→21:32)
[2016-09-29] MEDS: PIPERACILLIN SODIUM/TAZOBACTAM 4.5 GM in NS (IVPB) 100 ML IV SCH ×3 (05:56→21:32)
[2016-09-29] MEDS: KCL 20 MEQ TAB (K-DUR) PO SCH (05:56)
[2016-09-29] MEDS: LACTOBACILLUS Acidoph/Bulgar (LACTINEX/FLORANEX) TAB PO SCH ×3 (05:56→16:52)
[2016-09-29] MEDS: NS W/KCL 40 MEQ/L 1,000 ML IV SCH ×3 (06:12→23:00)
[2016-09-29 08:00] VITALS: BP 160/80
[2016-09-29] MEDS: NICOTINE 14 MG (NICODERM) PATCH TD SCH (08:44)
[2016-09-29] MEDS: meTOprolol SUCCINATE 100 MG (TOPROL XL) TAB PO SCH (08:47)
[2016-09-29] MEDS: risperiDONE 0.25 MG (RisperDAL) TAB PO SCH ×2 (08:47→21:32)
[2016-09-29] MEDS: NICOTINE PATCH REMOVAL TP SCH (08:48)
[2016-09-29] MEDS: ENALAPRIL 10 MG (VASOTEC) TAB PO SCH (08:53)
[2016-09-29] MEDS: ZINC OXIDE 16% OINT (BUTT PASTE) 113 GM TUBE TOP SCH ×3 (08:59→21:32)
--- NOTE | 2016-09-29 09:32 | Progress Note (SOAP) ---
Subjective Subjective/Events-last exam PT FATIGUED - BUT EATING WELL. DISCUSSED AGAIN WITH CREATIVE SERVICES WRITER, THEY REPORT THAT THE FAMILY IS NOT INTERESTED IN SPENDING THE MONEY NECESSARY TO GET THE PT INTO A JAIL, SWING BED OR ASSISED LIVING, WE ARE STILL WAITING ON DECISION FROM [facility]. Review of Systems General: Fatigue Pulmonary: No Dyspnea, No Cough Cardiovascular: No: Chest Pain Gastrointestinal: No: Abdominal Pain, Nausea Musculoskeletal: : leg pain (FROM SKIN LESIONS) Neurological: : Weakness Objective Exam Vital Signs Date Time Temp Pulse Resp B/P Pulse Ox O2 Delivery O2 Flow Rate FiO2 09/28/16 23:01 97.3 58 20 133/65 95 Room Air 09/28/16 20:20 Room Air 09/28/16 20:10 97.2 69 20 129/63 96 Room Air 09/28/16 16:08 96.5 60 20 121/63 96 Room Air 09/28/16 12:00 97.2 64 20 125/74 96 Room Air I & O 09/29/16 07:00 Intake Total 1620 ml Output Total 1800 ml Balance -180 ml Capillary Refill : General Appearance: WD/WN Thin HEENT: PERRL/EOMI Neck: Supple Respiratory: Chest Non Tender Lungs Clear Normal Breath Sounds Cardiovascular: Regular Rate, Rhythm Gastrointestinal: normal bowel sounds non tender soft Extremity: No Pedal Edema Neurologic/Psychiatric: Alert Oriented x3 Normal Mood/Affect Lymphatic: No Adenopathy Results Lab Laboratory Tests 09/28/16 14:05: Alanine Aminotransferase (ALT/SGPT) 17, Albumin 2.5L, Alkaline Phosphatase 61, Anion Gap 5, Aspartate Amino Transf (AST/SGOT) 19, BUN/Creatinine Ratio 27, Basophils # (Auto) 0.1, Basophils (%) (Auto) 1, Blood Urea Nitrogen 16, Calcium Level 7.8L, Carbon Dioxide Level 23, Chloride Level 106, Creatinine 0.60, Eosinophils # (Auto) 0.3, Eosinophils (%) (Auto) 4, Estimat Glomerular Filtration Rate > 60, Glucose Level 88, Hematocrit 31L, Hemoglobin 9.8L, Lymphocytes # (Auto) 1.6, Lymphocytes (%) (Auto) 22, Mean Corpuscular Hemoglobin 27, Mean Corpuscular Hemoglobin Concent 32, Mean Corpuscular Volume 86, Mean Platelet Volume 7.8, Monocytes # (Auto) 0.5, Monocytes (%) (Auto) 7, Neutrophils # (Auto) 5.0, Neutrophils (%) (Auto) 67, Platelet Count 472H, Potassium Level 4.3, Red Blood Count 3.60L, Red Cell Distribution Width 14.5, Sodium Level 134L, Total Bilirubin 0.2, Total Protein 5.2L, White Blood Count 7.5 Assessment/Plan Assessment/Plan Assess & Plan/Chief Complaint CELLULITIS OF WOUNDS ON LEGS 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 HYPERTENSION - RESTARTED METOPROLOL AND MONITOR BLOOD PRESSURE AND HEART RATE CLOSELY. COPD - CHRONIC - STABLE, MONITOR SYMPTOMS. 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 CONTINUE WITH SUPPORTIVE CARE AND STARTED ON A HIGH CALORIE, HIGH PROTEIN DIET DISCUSSED WITH CREATIVE SERVICES WRITER, THEY ARE TALKING TO THE FAMILY ABOUT PLACEMENT OPTIONS - I HAVE RECOMMENDED [facility] IF THEY WILL ACCEPT HER FOR WOUND CARE AND IV ANTIBIOTICS VERSUS JAIL PLACEMENT Diagnosis/Problems: Clinical Quality Measures DVT/VTE Risk/Contraindication: Risk Factor Score Per Nursin RFS Level Per Nursing on Admit: 4+=Very High Contraindications-Mechi: Other *list below* Other: WOUNDS ON LOWER LEGS ALYSIA NORRIS MD Sep 29, 2016 09:32
--- NOTE | 2016-09-29 10:42 | Physical Therapy Daily Note ---
PT Daily Note-Current Subjective Patient agrees to PT. Pain Numeric Pain Scale: 5-Moderate Pain Location: Right, Left Location Body Site: Calf Comment: FLACC Mental Status Patient Orientation: Confused Attachments: Mora Catheter, IV Transfers Functional [place] Measure 0=Not Assessed/NA 4=Minimal Assistance 1=Total Assistance 5=Supervision or Setup 2=Maximal Assistance 6=Modified [place] 3=Moderate Assistance 7=Complete IndependenceIRFPAI Quality Coding Scale 6 Independent with activity with or without an assistive device 5 Patient requires set up or clean up by helper. Patient completes activity by themselves 4 Supervision or touching assist (CGA). [place] provide cues , steadying assist 3 The helper provides less than half the effort to complete the activity 2 The helper provides more than half the effort to complete the activity 1 Dependent. The helper does all the effort to complete an activity 7 Patient refused to complete or attempt activity 9 The patient did not perform the activity before the current illness or injury 88 Not attempted due to Medical conditions or safety concerns Transfers (B, C, W/C) (FIM): 1 Scootin Rollin Sit to/from Stand: 1 Bed to/from Chair: 1 dependent assist with all mobility Exercises Supine Ex: Heel Slides, Straight leg raise, Hip abd/add Supine Reps: 15 (AAROM bilateral LE) Assessment Patient is up in recliner with needs met. Patient tolerated minimal activity at this time. PT Short Term Goals Short Term Goals Transfers (B,C,W/C) (FIM): 3 PT Half-Way Goals Half-Way Goals PT Half-Way Goals Time Frame: Oct 09, 2016 Transfers (B,C,W/C) (FIM): 4 Gait (FIM): 1 Gait distance (FIM): 1=up to 49 ft Distance: 5' Gait Level of Assist: 2 Gait Assistive Device: FWW Wheelchair (FIM): 1 Wheelchair distance (FIM): 1=up to 49 ft Distance: 10' Wheelchair Level of Assist: 3 PT Plan Treatment/Plan Treatment Plan: Continue Plan of Care Treatment Plan: Bed Mobility, Education, Functional Activity Lianna, Functional Strength, Gait, Safety, Therapeutic Exercise, Transfers Treatment Duration: Oct 09, 2016 Visits Per Week: 5 Time/GCodes Time In: 1000 Time Out: 1015 Total Billed Treatment Time: 15 Total Billed Treatment 1 visit FA 15 min CAM CORONADO PT Sep 29, 2016 10:42
--- NOTE | 2016-09-29 11:31 | Occupational Ther Daily Note ---
OT Current Status-Daily Note Subjective Pt in bed, agrees to treatment. Mental Status/Objective Functional [place] Measure 0=Not Assessed/NA 4=Minimal Assistance 1=Total Assistance 5=Supervision or Setup 2=Maximal Assistance 6=Modified [place] 3=Moderate Assistance 7=Complete [place] ADL-Treatment Pt supine to sit with maximal assistance. Pt declined to transfer to chair at this time, but agrees to ADLs sitting supported at EOB. Pt washed face with set up. Minimal assistance required to comb hair. Pt removed upper dentures and cleaned them with increased time using toothbrush. Assist required to rinse dentures. Pt able to place dentures back in mouth without assistance. Increased time required for all ADL tasks. Pt has decreased sitting balance throughout treatment, which worsens with fatigue. Sit to supine with assist for bilateral lower extremity and trunk. Pt repositioned in bed with assist. All needs met after session. Continue POC. OT Short Term Goals Short Term Goals Time Frame: Oct 12, 2016 Eating(FIM): 4 Grooming(FIM): 4 Bathing(FIM): 3 Upper Body Dressing(FIM): 4 Lower Body Dressing(FIM): 3 Toileting(FIM): 3 Transfers (B,C,W/C) (FIM): 3 Toilet/Commode Transfer(FIM): 3 Additional Short Term Goals: 1-Demonstrate ADL Tasks, 2-Verbalize Understanding , 3-ImproveStrength/Lianna 1=Demonstrate adherence to instructed precautions during ADL tasks. 2=Patient will verbalize/demonstrate understanding of assistive devices/ modifications for ADL. 3=Patient will improve strength/tolerance for activity to enable patient to perform ADL's. OT Social And Human Services Assistant Goals Social And Human Services Assistant Goals Time Frame: Oct 26, 2016 Eating (FIM): 6 Grooming(FIM): 6 Bathing(FIM): 5 Upper Body Dressing(FIM): 5 Lower Body Dressing(FIM): 5 Toileting(FIM): 6 Transfers (B,C,W/C) (FIM): 6 Toilet/Commode Transfer(FIM): 6 Additional Goals: 1-Demonstrate ADL Tasks, 2-Verbalize Understanding, 3- ImproveStrength/Lianna 1=Demonstrate adherence to instructed precautions during ADL tasks. 2=Patient will verbalize/demonstrate understanding of assistive devices/ modifications for ADL. 3=Patient will improve strength/tolerance for activity to enable patient to perform ADL's. OT Education/Plan Discharge Recommendations Plan/Recommendations: Continue POC Treatment Plan/Plan of Care Patient would benefit from OT for education, treatment and training to promote independence in ADL's, mobility, safety and/or upper extremity function for ADL' s. Plan of Care: ADL Retraining, Caregiver Training, Cognitive Retraining, Functional Mobility, UE Funct Exercise/Act Treatment Duration: Oct 26, 2016 Visits Per Week: 5-6 Agreement: Yes Rehab Potential: Guarded Time/GCodes Start Time: 09:38 Stop Time: 09:55 Total Time Billed (hr/min): 17 Billed Treatment Time 1 visit, ADL(17minutes) EMERSON ROUSE OT Sep 29, 2016 11:31
[2016-09-29] MEDS: ENOXAPARIN 40 MG/0.4 ML (LOVENOX) SYR SC SCH (14:25)
[2016-09-29 15:27] LABS: BASOPHILS # (AUTO) 0.1 10^3/uL (0.0-0.1); BASOPHILS % (AUTO) 1 % (0-10); EOSINOPHILS # (AUTO) 0.4 10^3/uL (0.0-0.3); EOSINOPHILS % (AUTO) 5 % (0-10); LYMPHOCYTES # (AUTO) 1.5 X 10^3 (1.0-4.0); LYMPHOCYTES % (AUTO) 20 % (12-44); MEAN CORPUSCULAR HEMOGLOBIN 27 PG (25-34); MEAN CORPUSCULAR HGB CONC 32 G/DL (32-36); MEAN CORPUSCULAR VOLUME 86 FL (80-99); MEAN PLATELET VOLUME 8.3 FL (7.4-10.4); MONOCYTES # (AUTO) 0.8 X 10^3 (0.0-1.0); MONOCYTES % (AUTO) 11 % (0-12); NEUTROPHILS # (AUTO) 4.8 X 10^3 (1.8-7.8); NEUTROPHILS % (AUTO) 63 % (42-75); PLATELET COUNT 507 10^3/uL (130-400); RED BLOOD COUNT 3.99 10^6/uL (4.35-5.85); RED CELL DISTRIBUTION WIDTH 14.7 % (10.0-14.5); WHITE BLOOD COUNT 7.5 10^3/uL (4.3-11.0)
[2016-09-29 15:50] LABS: ALANINE AMINOTRANSFERASE 22 U/L (0-55); ALBUMIN 2.6 G/DL (3.2-4.5); ANION GAP 8 MMOL/L (5-14); ASPARTATE AMINO TRANSFERASE 22 U/L (5-34); BILIRUBIN,TOTAL 0.2 MG/DL (0.1-1.0); BLOOD UREA NITROGEN 15 MG/DL (7-18); BUN/CREATININE RATIO 25; CALCIUM 8.3 MG/DL (8.5-10.1); CARBON DIOXIDE 23 MMOL/L (21-32); CHLORIDE 107 MMOL/L (98-107); CREATININE SERUM 0.61 MG/DL (0.60-1.30); GFR ESTIMATED > 60; GLUCOSE 92 MG/DL (70-105); POTASSIUM 4.7 MMOL/L (3.6-5.0); SODIUM 138 MMOL/L (135-145); TOTAL PROTEIN 5.5 G/DL (6.4-8.2)
[2016-09-29 16:00] VITALS: BP 131/63
[2016-09-30] VITALS: BP 154/67
[2016-09-30] MEDS: VANCOMYCIN 500 MG/NS 100 ML IVPB IV SCH ×4 (01:00→13:48)
[2016-09-30] MEDS: CATHETER FLUSH 10 ML SYR IV SCH ×3 (06:00→22:03)
[2016-09-30] MEDS: PIPERACILLIN SODIUM/TAZOBACTAM 4.5 GM in NS (IVPB) 100 ML IV SCH ×3 (06:12→22:03)
[2016-09-30] MEDS: LACTOBACILLUS Acidoph/Bulgar (LACTINEX/FLORANEX) TAB PO SCH ×3 (06:12→16:19)
[2016-09-30] MEDS: KCL 20 MEQ TAB (K-DUR) PO SCH (06:12)
[2016-09-30 08:00] VITALS: BP 177/97
[2016-09-30] MEDS: meTOprolol SUCCINATE 100 MG (TOPROL XL) TAB PO SCH (09:05)
[2016-09-30] MEDS: NICOTINE 14 MG (NICODERM) PATCH TD SCH (09:05)
[2016-09-30] MEDS: ENALAPRIL 10 MG (VASOTEC) TAB PO SCH (09:05)
[2016-09-30] MEDS: risperiDONE 0.25 MG (RisperDAL) TAB PO SCH ×2 (09:05→20:07)
[2016-09-30] MEDS: NICOTINE PATCH REMOVAL TP SCH (09:05)
[2016-09-30] MEDS: ZINC OXIDE 16% OINT (BUTT PASTE) 113 GM TUBE TOP SCH ×3 (09:06→20:07)
--- NOTE | 2016-09-30 09:06 | Progress Note (SOAP) ---
Subjective Subjective/Events-last exam PT REPORTS THAT SHE HAS A GOOD APPETITE, PER STAFF, STILL PAIN WITH DRESSING CHANGES - BUT OTHERWISE IMPROVING SYMPTOMS. WOUND CARE IS HAPPY WITH THE PROGRESS OF HER WOUNDS. Review of Systems General: Fatigue Pulmonary: No Dyspnea, No Cough Cardiovascular: No: Chest Pain Gastrointestinal: No: Abdominal Pain, Nausea Neurological: : Weakness Objective Exam Vital Signs Date Time Temp Pulse Resp B/P Pulse Ox O2 Delivery O2 Flow Rate FiO2 09/30/16 08:00 97.4 86 20 177/97 96 Room Air 09/30/16 00:00 98.5 78 20 154/67 95 Room Air 09/29/16 20:15 Room Air 09/29/16 16:00 97.9 70 20 131/63 97 Room Air I & O 09/30/16 07:00 Intake Total 2840 ml Output Total 1550 ml Balance 1290 ml Capillary Refill : General Appearance: No Apparent Distress WD/WN HEENT: PERRL/EOMI Pharynx Normal Neck: Full Range of Motion Supple Respiratory: Chest Non Tender Lungs Clear Normal Breath Sounds Cardiovascular: Regular Rate, Rhythm Gastrointestinal: normal bowel sounds soft Neurologic/Psychiatric: Alert Oriented x3 No Motor/Sensory Deficits Normal Mood/Affect Results Lab Laboratory Tests 09/29/16 15:20: Alanine Aminotransferase (ALT/SGPT) 22, Albumin 2.6L, Alkaline Phosphatase 64, Anion Gap 8, Aspartate Amino Transf (AST/SGOT) 22, BUN/Creatinine Ratio 25, Basophils # (Auto) 0.1, Basophils (%) (Auto) 1, Blood Urea Nitrogen 15, Calcium Level 8.3L, Carbon Dioxide Level 23, Chloride Level 107, Creatinine 0.61, Eosinophils # (Auto) 0.4H, Eosinophils (%) (Auto) 5, Estimat Glomerular Filtration Rate > 60, Glucose Level 92, Hematocrit 34L, Hemoglobin 10.9L, Lymphocytes # (Auto) 1.5, Lymphocytes (%) (Auto) 20, Mean Corpuscular Hemoglobin 27, Mean Corpuscular Hemoglobin Concent 32, Mean Corpuscular Volume 86, Mean Platelet Volume 8.3, Monocytes # (Auto) 0.8, Monocytes (%) (Auto) 11, Neutrophils # (Auto) 4.8, Neutrophils (%) (Auto) 63, Platelet Count 507H, Potassium Level 4.7, Red Blood Count 3.99L, Red Cell Distribution Width 14.7H, Sodium Level 138, Total Bilirubin 0.2, Total Protein 5.5L, White Blood Count 7.5 Assessment/Plan Assessment/Plan Assess & Plan/Chief Complaint CELLULITIS OF WOUNDS ON LEGS 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 HYPERTENSION - RESTARTED METOPROLOL AND MONITOR BLOOD PRESSURE AND HEART RATE CLOSELY. COPD - CHRONIC - STABLE, MONITOR SYMPTOMS. BIPOLAR - RESTARTED RISPERDAL ANOREXIA - SUSPECT NEGLECT AT HOME, DISCUSSED WITH SOCIAL WORK SPECIALIST - THEY WILL PLACED A HOT-LINE CALL FOR ADULT PROTECTIVE SERVICES. CONTINUE WITH SUPPORTIVE CARE AND STARTED ON A HIGH CALORIE, HIGH PROTEIN DIET DISCUSSED WITH SOCIAL WORK SPECIALIST, THEY ARE TALKING TO THE FAMILY ABOUT PLACEMENT OPTIONS -STILL WAITING ON PLACEMENT PLANS Diagnosis/Problems: Clinical Quality Measures DVT/VTE Risk/Contraindication: Risk Factor Score Per Nursin RFS Level Per Nursing on Admit: 4+=Very High Contraindications-Mechi: Other *list below* Other: WOUNDS ON LOWER LEGS ALYSIA NORRIS MD Sep 30, 2016 09:06
--- NOTE | 2016-09-30 09:33 | Physical Therapy Daily Note ---
PT Daily Note-Current Subjective Patient agrees to PT. Pain Numeric Pain Scale: 5-Moderate Pain Location: Right, Left Location Body Site: Calf Pain Description: Ache Mental Status Patient Orientation: Confused Attachments: Mora Catheter, IV Transfers Functional [place] Measure 0=Not Assessed/NA 4=Minimal Assistance 1=Total Assistance 5=Supervision or Setup 2=Maximal Assistance 6=Modified [place] 3=Moderate Assistance 7=Complete IndependenceIRFPAI Quality Coding Scale 6 Independent with activity with or without an assistive device 5 Patient requires set up or clean up by helper. Patient completes activity by themselves 4 Supervision or touching assist (CGA). [place] provide cues , steadying assist 3 The helper provides less than half the effort to complete the activity 2 The helper provides more than half the effort to complete the activity 1 Dependent. The helper does all the effort to complete an activity 7 Patient refused to complete or attempt activity 9 The patient did not perform the activity before the current illness or injury 88 Not attempted due to Medical conditions or safety concerns Transfers (B, C, W/C) (FIM): 1 Scootin Rollin Supine to/from Sit: 1 Sit to/from Stand: 1 Bed to/from Chair: 1 Patient continues to be dependent assistance with all functional mobility due to extreme weakness. Exercises Supine Ex: Heel Slides Supine Reps: 15 (AAROM bilateral LE) Seated Therapy Exercises: Long arc quads Seated Reps: 15 (AAROM bilateral LE) Assessment Patient tolerates minimal activity and is not progressing with treatment at this time. PT will continue to address functional strength and mobility. PT Short Term Goals Short Term Goals Transfers (B,C,W/C) (FIM): 3 PT Nursing Home Goals Nursing Home Goals PT Nursing Home Goals Time Frame: Oct 09, 2016 Transfers (B,C,W/C) (FIM): 4 Gait (FIM): 1 Gait distance (FIM): 1=up to 49 ft Distance: 5' Gait Level of Assist: 2 Gait Assistive Device: FWW Wheelchair (FIM): 1 Wheelchair distance (FIM): 1=up to 49 ft Distance: 10' Wheelchair Level of Assist: 3 PT Plan Treatment/Plan Treatment Plan: Continue Plan of Care Treatment Plan: Bed Mobility, Education, Functional Activity Lianna, Functional Strength, Gait, Safety, Therapeutic Exercise, Transfers Treatment Duration: Oct 09, 2016 Visits Per Week: 5 Time/GCodes Time In: 851 Time Out: 901 Total Billed Treatment Time: 10 Total Billed Treatment 1 visit FA 10 min CAM CORONADO PT Sep 30, 2016 09:33
--- NOTE | 2016-09-30 11:02 | Occupational Ther Daily Note ---
OT Current Status-Daily Note Subjective Pt alert, sitting in recliner. Pt agreed to therapy. No c/o pain at this time. Mental Status/Objective Patient Orientation: Person, Place Functional [place] Measure 0=Not Assessed/NA 4=Minimal Assistance 1=Total Assistance 5=Supervision or Setup 2=Maximal Assistance 6=Modified [place] 3=Moderate Assistance 7=Complete [place] ADL-Treatment After set up, pt was able to cleanse upper body by self. Then with mod A pt pushed to stand and stood while OT cleansed buttocks, pt incontinent of bowel. Pt sat back down for recovery break then attempted to stand again, held onto chair so had to sit down in chair again. Pt then was able to stand while OT switched out pillows and pad in chair. Sitting in chair pt was able to comb front and sides of hair, OT combed back. After therapy, pt sitting in recliner with call light/phone in reach. Nrsg came in to check on pt's IV. All needs met in room. OT Short Term Goals Short Term Goals Time Frame: Oct 12, 2016 Eating(FIM): 4 Grooming(FIM): 4 Bathing(FIM): 3 Upper Body Dressing(FIM): 4 Lower Body Dressing(FIM): 3 Toileting(FIM): 3 Transfers (B,C,W/C) (FIM): 3 Toilet/Commode Transfer(FIM): 3 Additional Short Term Goals: 1-Demonstrate ADL Tasks, 2-Verbalize Understanding , 3-ImproveStrength/Lianna 1=Demonstrate adherence to instructed precautions during ADL tasks. 2=Patient will verbalize/demonstrate understanding of assistive devices/ modifications for ADL. 3=Patient will improve strength/tolerance for activity to enable patient to perform ADL's. OT Fraud Representative Goals Intermediate Goals Time Frame: Oct 26, 2016 Eating (FIM): 6 Grooming(FIM): 6 Bathing(FIM): 5 Upper Body Dressing(FIM): 5 Lower Body Dressing(FIM): 5 Toileting(FIM): 6 Transfers (B,C,W/C) (FIM): 6 Toilet/Commode Transfer(FIM): 6 Additional Goals: 1-Demonstrate ADL Tasks, 2-Verbalize Understanding, 3- ImproveStrength/Lianna 1=Demonstrate adherence to instructed precautions during ADL tasks. 2=Patient will verbalize/demonstrate understanding of assistive devices/ modifications for ADL. 3=Patient will improve strength/tolerance for activity to enable patient to perform ADL's. OT Education/Plan Discharge Recommendations Plan/Recommendations: Continue POC Treatment Plan/Plan of Care Patient would benefit from OT for education, treatment and training to promote independence in ADL's, mobility, safety and/or upper extremity function for ADL' s. Plan of Care: ADL Retraining, Caregiver Training, Cognitive Retraining, Functional Mobility, UE Funct Exercise/Act Treatment Duration: Oct 26, 2016 Visits Per Week: 5-6 Agreement: Yes Rehab Potential: Guarded Time/GCodes Start Time: 10:15 Stop Time: 10:40 Total Time Billed (hr/min): 25 Billed Treatment Time 1 visit-ADL 2 (25 min) RASHI MAHER Sep 30, 2016 11:02
[2016-09-30] MEDS: ENOXAPARIN 40 MG/0.4 ML (LOVENOX) SYR SC SCH (14:33)
[2016-09-30] MEDS: NS W/KCL 40 MEQ/L 1,000 ML IV SCH (14:59)
[2016-09-30 16:50] VITALS: BP 142/85
--- NOTE | 2016-09-30 23:50 | Wound Care Progress Note ---
Subjective Subjective Subjective/Events-last exam 80 year old female with multiple arterial wounds of both lower extremities. The wounds are improved with current dressings. PMFSH: No interval change. Review of Systems Pulmonary: No Dyspnea Cardiovascular: No: Chest Pain Objective Exam Last Set of Vital Signs Vital Signs Date Time Temp Pulse Resp B/P Pulse Ox O2 Delivery O2 Flow Rate FiO2 09/30/16 16:50 98.0 97 18 142/85 99 Room Air Capillary Refill : I&O Intake and Output 09/30/16 00:00 Intake Total 3180 ml Output Total 2300 ml Balance 880 ml Intake Oral 1680 ml IV Total 1500 ml Output Urine Total 2300 ml # Bowel Movements 4 General: Alert, No Acute Distress Lungs: Normal Air Movement Skin: Other (Wounds of R medial ankle, L medial ankle, and R medial calf are clean and granulating.) Results Lab Microbiology 09/30/16 C. difficile GD Antigen & Toxins - Final, Complete Assessment/Plan Assessment/Plan Assessment/Plan 1. Arterial ulcers bilateral ankles, R medial calf, improving. 2. Cellulitis R calf, improving. 3. Dementia. Plan: continue present regimen. MARY CUNNINGHAM MD Sep 30, 2016 23:50
[2016-10-01] VITALS: BP 125/75
[2016-10-01] MEDS: VANCOMYCIN 500 MG/NS 100 ML IVPB IV SCH ×4 (00:39→13:55)
[2016-10-01] MEDS: KCL 20 MEQ TAB (K-DUR) PO SCH (05:46)
[2016-10-01] MEDS: NS W/KCL 40 MEQ/L 1,000 ML IV SCH (05:46)
[2016-10-01] MEDS: LACTOBACILLUS Acidoph/Bulgar (LACTINEX/FLORANEX) TAB PO SCH ×3 (05:46→16:27)
[2016-10-01] MEDS: PIPERACILLIN SODIUM/TAZOBACTAM 4.5 GM in NS (IVPB) 100 ML IV SCH ×2 (05:46→14:36)
[2016-10-01] MEDS: CATHETER FLUSH 10 ML SYR IV SCH ×2 (05:47→14:02)
[2016-10-01 08:00] VITALS: BP 128/72
[2016-10-01] MEDS: meTOprolol SUCCINATE 100 MG (TOPROL XL) TAB PO SCH (09:47)
[2016-10-01] MEDS: NICOTINE PATCH REMOVAL TP SCH (09:47)
[2016-10-01] MEDS: NICOTINE 14 MG (NICODERM) PATCH TD SCH (09:47)
[2016-10-01] MEDS: risperiDONE 0.25 MG (RisperDAL) TAB PO SCH (09:47)
[2016-10-01] MEDS: ENALAPRIL 10 MG (VASOTEC) TAB PO SCH (09:48)
[2016-10-01] MEDS: ZINC OXIDE 16% OINT (BUTT PASTE) 113 GM TUBE TOP SCH ×2 (09:48→13:51)
--- NOTE | 2016-10-01 09:58 | Discharge Summary ---
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 THE PATIENT WAS SEEN IN WOUND CARE TODAY - DR. CUNNINGHAM CALLED ME TO ASK FOR THE PATIENT TO BE ADMITTED TO THE HOSPITAL FOR WOUND CARE, IV ANTIBIOTICS, AND NUTRITION SUPPLEMENTATION. THE PATIENT REPORTS TO ME THAT SHE HAS QUITE A BIT OF PAIN ON HER LOWER LEG DUE TO THE WOUND ON HER ANKLES - BUT SPECIFICALLY THE RIGHT INNER ANKLE IS QUITE PAINFUL. SHE STATES THAT SHE DOES NOT EAT WELL AT HOME. WHEN I ASKED IF HER SON WAS CARING FOR HER - SHE STATED, "WELL....NOT WELL HE COULD I GUESS" AND WHEN I ASKED HER ABOUT IF SHE WAS EATING, AND WHO GOT THE FOOD AND IF HER MONEY WAS BEING SPENT ON FOOD FOR HER, SHE RESPONDED FOLLOWS: "MY SON GETS THE FOOD FOR US, THE MONEY IS SPENT A LITTLE ON FOOD, AND MORE ON CIGARETTES Discharge Summary Discharge Physical Examination Allergies: Coded Allergies: NKANo Known Allergies (Verified Allergy, Unknown, 11/16/06) Vitals & I&Os General Appearance: Alert, No Acute Distress Respiratory: Normal Air Movement Cardiovascular: Regular Rate Abdominal: Normal Bowel Sounds, Soft, No Tenderness Skin: Other (wounds of R calf, R medial ankle, L medial ankle, and sacrum which were documented and dressed earlier today in [facility].) Psych/Mental Status: Mental Status NL, Mood NL Hospital Course CELLULITIS OF WOUNDS ON LEGS 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 HX OF CULTURE ON LEGS WITH MRSA FROM WOUNDS - CONSULT PLACED TO WOUND CARE. HYPERTENSION - RESTARTED METOPROLOL - SYMPTOMS STABLE COPD - CHRONIC - STABLE, MONITOR SYMPTOMS. BIPOLAR - RESTARTED RISPERDAL ANOREXIA - SUSPECT NEGLECT AT HOME, DISCUSSED WITH [facility] - THEY PLACED A HOT-LINE CALL FOR ADULT PROTECTIVE SERVICES. CONTINUE WITH SUPPORTIVE CARE AND STARTED ON A HIGH CALORIE, HIGH PROTEIN DIET DISCUSSED WITH [facility], THEY ARE TALKING TO THE FAMILY ABOUT PLACEMENT OPTIONS FAMILY IS NOT INTERESTED IN PLACEMENT DUE TO FINANCIAL CONCERNS. Discharge Condition at discharge improving Instructions to patient/family Please see electonic discharge instructions given to patient. Discharge Medications Reviewed and agree with Discharge Medication list on patient's Discharge Instruction sheet Clinical Quality Measures DVT/VTE Risk/Contraindication: Risk Factor Score Per Nursin RFS Level Per Nursing on Admit: 4+=Very High Contraindications-Mechi: Other *list below* Other: WOUNDS ON LOWER LEGS ALYSIA NORRIS MD Oct 01, 2016 09:58
[2016-10-01] MEDS ORDERED: [UNRECOGNIZED DRUG - SUPPLY] TOP (10:02)
[2016-10-01] MEDS ORDERED: ZINC28PA TOP (10:02)
[2016-10-01] MEDS ORDERED: ACID1TAB PO (10:02)
[2016-10-01] MEDS ORDERED: AMOX500C2 PO (10:02)
--- NOTE | 2016-10-01 10:06 | Discharge Inst-Home Health ---
Discharge Inst-to Home Health Patient Instructions Patient Instructions/FollowUp: FRANKLIN HONEY ALGINATE DRESSINGS TO WOUNDS ON LEGS, ARM - PLEASE CHANGE EVERY 48 HOURS, MONITOR SYMPTOMS, WOUNDS, REPORT TO DR. CUNNINGHAM AT [facility] [place], [place] DISCHARGE ORDERS Allergies: Coded Allergies: NKANo Known Allergies (Verified Allergy, Unknown, 11/16/06) Height (Feet): 5 Height (Inches): 4.00 Weight (Pounds): 87 Weight (Ounces): 8.0 Home Health Need/Face to Face Reason Pt Homebound CANNOT AMBULATE I Have Seen Pt [id number]: Yes Date of Face to Face: Oct 01, 2016 Discharged To: Home Diagnosis/Conditions HH Order: SEE OTHER ORDER FOR HOME HEALTH, WOUNDS, CELLULITIS, WEAKNESS, CONTRACTURES, MALNOURISHMENT Consult/Follow Up/New Order *I certify that based on my findings, the following services are medically necessary Home Health Services: Services: Nursing Services, Mold Stripper-Evaluate & Treat, Physical Therapy-Evaluate & Treat My clinical findings support the need for the above services; see Diagnosis. Dicharge Diet: Regular Diet Pneu Vac Indicated: Yes Discharge Medications: New, Converted, or Re-newed RX: Transmited to Pharmacy I certify that this patient is under my care and that I, a nurse practitioner or a physician; a assistant professor of geography working with me, had a face to face encounter that - meets the physician face to face encounter requirements with this patient as dated. ALYSIA NORRIS MD Oct 01, 2016 10:06
--- NOTE | 2016-10-01 10:59 | Physical Therapy Daily Note ---
PT Daily Note-Current Subjective Patient agrees to PT. Pain Numeric Pain Scale: 5-Moderate Pain Location: Right, Left Location Body Site: Calf Pain Description: Pressure Mental Status Patient Orientation: Person, Time, Situation Attachments: IV Transfers Functional Clark Measure 0=Not Assessed/NA 4=Minimal Assistance 1=Total Assistance 5=Supervision or Setup 2=Maximal Assistance 6=Modified Clark 3=Moderate Assistance 7=Complete IndependenceIRFPAI Quality Coding Scale 6 Independent with activity with or without an assistive device 5 Patient requires set up or clean up by helper. Patient completes activity by themselves 4 Supervision or touching assist (CGA). [place] provide cues , steadying assist 3 The helper provides less than half the effort to complete the activity 2 The helper provides more than half the effort to complete the activity 1 Dependent. The helper does all the effort to complete an activity 7 Patient refused to complete or attempt activity 9 The patient did not perform the activity before the current illness or injury 88 Not attempted due to Medical conditions or safety concerns Transfers (B, C, W/C) (FIM): 1 Scootin Rollin Supine to/from Sit: 1 Sit to/from Stand: 1 Bed to/from Chair: 1 Patient unable to take steps bed to chair requiring dependent assist with all mobility Exercises Supine Ex: Ankle pumps, Heel Slides Supine Reps: 15 Seated Therapy Exercises: Ankle pumps, Long arc quads Seated Reps: 15 Treatments Patient requires AAROM for exercises and fatigues very quickly with minimal activity. Assessment Patient continues to be extremely weak and unable to care for self. Patient lives with family. Plan dismissal this week with family assistance. PT Short Term Goals Short Term Goals Transfers (B,C,W/C) (FIM): 3 PT Transit Planning Director Goals Long-Term Goals PT Transit Planning Director Goals Time Frame: Oct 09, 2016 Transfers (B,C,W/C) (FIM): 4 Gait (FIM): 1 Gait distance (FIM): 1=up to 49 ft Distance: 5' Gait Level of Assist: 2 Gait Assistive Device: FWW Wheelchair (FIM): 1 Wheelchair distance (FIM): 1=up to 49 ft Distance: 10' Wheelchair Level of Assist: 3 PT Plan Treatment/Plan Treatment Plan: Continue Plan of Care Treatment Plan: Bed Mobility, Education, Functional Activity Lianna, Functional Strength, Gait, Safety, Therapeutic Exercise, Transfers Treatment Duration: Oct 09, 2016 Visits Per Week: 5 Time/GCodes Time In: 1010 Time Out: 1025 Total Billed Treatment Time: 15 Total Billed Treatment 1 visit FA 15 min CAM CORONADO PT Oct 01, 2016 10:59
--- NOTE | 2016-10-01 11:07 | Occupational Ther Daily Note ---
OT Current Status-Daily Note Subjective Pt sleeping in recliner, woke easily to name. Pt stated that she was going home later today. Pt agreed to therapy. No c/o pain. Mental Status/Objective Functional Blessing Measure 0=Not Assessed/NA 4=Minimal Assistance 1=Total Assistance 5=Supervision or Setup 2=Maximal Assistance 6=Modified Blessing 3=Moderate Assistance 7=Complete Blessing Other Treatment Pt completed UE exercises without resistance. Pt was able to complete all ROM WFL using L UE, R UE decreased shldr ROM unable to touch head. R elbow, wrist and forearm ROM WFL. After therapy, pt sitting in recliner with call light/ phone in reach. All needs met in room. Pt fell asleep before OT left room. OT Short Term Goals Short Term Goals Time Frame: Oct 12, 2016 Eating(FIM): 4 Grooming(FIM): 4 Bathing(FIM): 3 Upper Body Dressing(FIM): 4 Lower Body Dressing(FIM): 3 Toileting(FIM): 3 Transfers (B,C,W/C) (FIM): 3 Toilet/Commode Transfer(FIM): 3 Additional Short Term Goals: 1-Demonstrate ADL Tasks, 2-Verbalize Understanding , 3-ImproveStrength/Lianna 1=Demonstrate adherence to instructed precautions during ADL tasks. 2=Patient will verbalize/demonstrate understanding of assistive devices/ modifications for ADL. 3=Patient will improve strength/tolerance for activity to enable patient to perform ADL's. OT Medical Office Administrator Goals Medical Office Administrator Goals Time Frame: Oct 26, 2016 Eating (FIM): 6 Grooming(FIM): 6 Bathing(FIM): 5 Upper Body Dressing(FIM): 5 Lower Body Dressing(FIM): 5 Toileting(FIM): 6 Transfers (B,C,W/C) (FIM): 6 Toilet/Commode Transfer(FIM): 6 Additional Goals: 1-Demonstrate ADL Tasks, 2-Verbalize Understanding, 3- ImproveStrength/Lianna 1=Demonstrate adherence to instructed precautions during ADL tasks. 2=Patient will verbalize/demonstrate understanding of assistive devices/ modifications for ADL. 3=Patient will improve strength/tolerance for activity to enable patient to perform ADL's. OT Education/Plan Discharge Recommendations Plan/Recommendations: Continue POC Treatment Plan/Plan of Care Patient would benefit from OT for education, treatment and training to promote independence in ADL's, mobility, safety and/or upper extremity function for ADL' s. Plan of Care: ADL Retraining, Caregiver Training, Cognitive Retraining, Functional Mobility, UE Funct Exercise/Act Treatment Duration: Oct 26, 2016 Visits Per Week: 5-6 Agreement: Yes Rehab Potential: Guarded Time/GCodes Start Time: 10:40 Stop Time: 10:50 Total Time Billed (hr/min): 10 Billed Treatment Time 1 visit-EX 1 (10 min) RASHI MAHER Oct 01, 2016 11:07
[2016-10-01] MEDS ORDERED: TROUGH ORDER-PHARMACY XX NR (12:00)
[2016-10-01] MEDS: ENOXAPARIN 40 MG/0.4 ML (LOVENOX) SYR SC SCH (14:36)
[2016-10-01 16:00] VITALS: BP 132/65
[2016-10-01 16:30] VITALS: BP 132/65
--- NOTE | 2016-10-02 09:57 | Physician Query-General Query ---
Physician Query-General Query to Physician: [facility] SOP Coding Query Via [facility] Exhibit D3 Link Manifestation to Etiology Template History/Risk factors: (Peripheral Vascular Disease, Arterial Insufficiency) The medical record reflects the following clinical scenario: Clinical Findings: (Necrotic wound right calf. Cellulitis right lower extremity) Treatment: (Manuka honey alginate dressings and IV Vancomycin/Zosyn.) Question: Can you specify if the (arterial ulcers) are due to/associated with ( Arteriosclerosis) ? Please document a response in the Progress Notes or Discharge Summary. 1. Yes - (arterial ulcers) are due to/associated with (Arteriosclerosis of extremities) 2. No - (arterial ulcers) are not due to/associated with (Arteriosclerosis of extremities) 3. Other, with explanation of the clinical findings 4. Clinically undetermined, no explanation for the clinical findings In responding to this query, please exercise your independent professional judgment. The purpose of this communication is to more accurately reflect the complexity of your patients condition. The fact that a question is asked does not imply that any particular answer is desired or expected. Thank you for your timely response to this clarification. THIS PHYSICIAN QUERY FORM IS A PERMANENT PART OF THE MEDICAL RECORD PHYSICIAN RESPONSE: Based on the clinical findings in the record, please respond to the query above on this document as an addendum. Possible, probable, or questionable diagnosis can be coded for INPATIENTS ONLY. Physician Response: Physician Response yes If you have questions please contact: Splunk Developer:Charlee Williamson [facility] Ext:[phone] Thank you for your time and cooperation. Clinical Lubrication Servicer/Splunk Developer This is a permanent part of the medical record CHARLEE WILLIAMSON Oct 02, 2016 09:57 MARY CUNNINGHAM MD Oct 12, 2016 00:05
== END 2016-10-01 17:00 | disposition home health service (06) | DRG 603 ==
LOC: 4TH 11:37
PROVIDERS: ADMIT Surgery; ATTEND Family Medicine
DX: L03.115 Cellulitis of right lower limb (principal); S81.811A Laceration without foreign body, right lower leg, initial encounter; I70.261 Atherosclerosis of native arteries of extremities with gangrene, right leg; I70.233 Atherosclerosis of native arteries of right leg with ulceration of ankle; I70.243 Atherosclerosis of native arteries of left leg with ulceration of ankle; L97.219 Non-pressure chronic ulcer of right calf with unspecified severity; L97.319 Non-pressure chronic ulcer of right ankle with unspecified severity; L97.329 Non-pressure chronic ulcer of left ankle with unspecified severity; L89.150 Pressure ulcer of sacral region, unstageable; E46 Unspecified protein-calorie malnutrition; R64 Cachexia; E87.6 Hypokalemia; L30.8 Other specified dermatitis; R32 Unspecified urinary incontinence; J44.9 Chronic obstructive pulmonary disease, unspecified; I25.10 Atherosclerotic heart disease of native coronary artery without angina pectoris; I10 Essential (primary) hypertension; F31.9 Bipolar disorder, unspecified; F03.90 Unspecified dementia, unspecified severity, without behavioral disturbance, psychotic disturbance, mood disturbance, and anxiety; F17.210 Nicotine dependence, cigarettes, uncomplicated; R29.6 Repeated falls; Z23 Encounter for immunization; Z86.14 Personal history of Methicillin resistant Staphylococcus aureus infection; X58.XXXA Exposure to other specified factors, initial encounter
CPT/HCPCS: 36415; 76937; 80053; 80202; 85025; 87324; 87449; 99214

== ENCOUNTER 2016-10-14 12:50 | Outpatient (RCR) | payer MEDICARE ==
[~2016-10-14 12:50] MED LIST changes: +ACID1TAB PO; +ACID1TAB5 PO; +AMOX500C2 PO; +DOCU-143 PO; +ZINC28PA TOP; +[UNRECOGNIZED DRUG - SUPPLY] TOP
== END 2016-11-13 14:57 | disposition home or self-care (01) ==
LOC: WOUNDCARE 12:50
PROVIDERS: ATTEND Surgery
DX: L97.212 Non-pressure chronic ulcer of right calf with fat layer exposed (principal); L97.422 Non-pressure chronic ulcer of left heel and midfoot with fat layer exposed; L97.412 Non-pressure chronic ulcer of right heel and midfoot with fat layer exposed; I70.232 Atherosclerosis of native arteries of right leg with ulceration of calf; I70.244 Atherosclerosis of native arteries of left leg with ulceration of heel and midfoot; L97.312 Non-pressure chronic ulcer of right ankle with fat layer exposed; L97.322 Non-pressure chronic ulcer of left ankle with fat layer exposed; I70.233 Atherosclerosis of native arteries of right leg with ulceration of ankle; I70.243 Atherosclerosis of native arteries of left leg with ulceration of ankle; F03.90 Unspecified dementia, unspecified severity, without behavioral disturbance, psychotic disturbance, mood disturbance, and anxiety
CPT/HCPCS: 11042; 11043

== ENCOUNTER → 2017-03-04 | Outpatient (CLI) | payer MEDICARE ==
[~2017-03-04] MED LIST changes: -METO-274 PO; +METO-395 PO
[2017-03-04 13:03] LABS: BILIRUBIN,URINE NEGATIVE (NEGATIVE); KETONES,URINE NEGATIVE (NEGATIVE); LEUKOCYTE ESTERASE ,URINE 3+ (NEGATIVE); NITRITE,URINE NEGATIVE (NEGATIVE); PH,URINE 5 (5-9); PROTEIN,URINE 2+ (NEGATIVE); UROBILINOGEN,URINE NORMAL (NORMAL)
[2017-03-04 13:22] LABS: WBC,URINE 50-100 /HPF
== END ==
LOC: LABNPT 12:43
PROVIDERS: ATTEND Family Medicine
DX: R30.0 Dysuria (principal); N39.0 Urinary tract infection, site not specified
CPT/HCPCS: 81000; 87077; 87088; 87186